=== PATIENT | female | born 1960 | race Caucasian/White ===

== ENCOUNTER → 2017-02-18 | Outpatient (CLI) | payer MEDICARE ==
[~2017-02-18] MED LIST: ADVAIR HFA120 INHALA IH; ASPIR 8181 M1 PO; CLINDAMYCIN HC300 MG PO; GABAPENTIN800 MG PO; LEVOFLOXACIN750 MG PO; MONTELUKAST SOD10 MG PO; MUCINEX600 MG PO; NICOTINE PATCH1 EAC2 TD; PREDNISONE20 MG PO; PROAIR HFA8.5 GM IH; TECFIDERA240 MG PO; VIBRAMYCIN100 MG PO; VITAMIN D31000 UNIT PO; XYZAL5 MG PO
== END | disposition home or self-care (01) ==
LOC: CDC
DX: Z01.810 Encounter for preprocedural cardiovascular examination (principal); R94.31 Abnormal electrocardiogram [ECG] [EKG]
CPT/HCPCS: 93000

== ENCOUNTER 2017-03-03 09:57 | Day surgery (SDC) | payer OTHER ==
[~2017-03-03] VITALS: Ht 154.9 cm; Wt 101.6 kg
[2017-03-03 10:19] VITALS: BP 151/80
[2017-03-03 13:19] VITALS: BP 130/60
[2017-03-03 14:03] VITALS: BP 149/70
== END 2017-03-03 14:00 | disposition home or self-care (01) ==
LOC: SDC
PROC: 0UDB8ZX Extraction of Endometrium, Via Natural or Artificial Opening Endoscopic, Diagnostic (ICD-10-PCS; principal; 2017-03-03)
DX: C54.1 Malignant neoplasm of endometrium (principal); N95.0 Postmenopausal bleeding; J45.909 Unspecified asthma, uncomplicated; E66.9 Obesity, unspecified; Z68.41 Body mass index [BMI] 40.0-44.9, adult; F17.200 Nicotine dependence, unspecified, uncomplicated; Z88.2 Allergy status to sulfonamides; Z79.82 Long term (current) use of aspirin; Z80.0 Family history of malignant neoplasm of digestive organs; Z80.49 Family history of malignant neoplasm of other genital organs; Z80.7 Family history of other malignant neoplasms of lymphoid, hematopoietic and related tissues; Z88.0 Allergy status to penicillin
CPT/HCPCS: 88305; J1100; J1170; J1885; J2250; J2405; J3010

== ENCOUNTER 2017-04-17 21:32 | Inpatient (IN) | payer OTHER ==
[~2017-04-17] VITALS: Ht 154.9 cm; Wt 105.2 kg
[2017-04-18 12:49] VITALS: BP 188/87
[2017-04-18 15:26] VITALS: BP 131/67
[2017-04-18 16:10] LABS: HEMATOCRIT 43.4 % (36.0-46.0); HEMOGLOBIN 13.6 G/DL (11.9-15.5); MCH 28.3 PG (29.0-34.0); MCHC 31.3 G/DL (30.0-36.0); MCV 90.2 FL (83-99); PLATELET COUNT 194 K/uL (156-360); RBC DIS.WIDTH-CV 14.6 % (11.8-14.6); RBC DIS.WIDTH-SD 48.7 % (39-53); RED BLOOD COUNT 4.81 M/uL (3.80-5.20)
[2017-04-18 16:33] LABS: CHLORIDE 103 MEQ/L (99-109); CREATININE 0.9 MG/DL (0.6-1.3); GFR ESTIMATE (CALCULATED) > 59 mL/min/; GLUCOSE 150 mg/dL (70-99); POTASSIUM 4.4 MEQ/L (3.7-5.4); SODIUM 138 MEQ/L (136-147); UREA NITROGEN (BUN) 13 mg/dL (9-23)
[2017-04-18 19:52] VITALS: BP 150/81
[2017-04-18 23:37] VITALS: BP 136/68
[2017-04-19 03:51] VITALS: BP 125/62
[2017-04-19 07:11] VITALS: BP 101/51
[2017-04-19 07:23] LABS: HEMOGLOBIN 12.6 G/DL (11.9-15.5); MCH 27.9 PG (29.0-34.0); MCHC 30.7 G/DL (30.0-36.0); MCV 90.7 FL (83-99); RBC DIS.WIDTH-CV 14.6 % (11.8-14.6); RBC DIS.WIDTH-SD 49.1 % (39-53); RED BLOOD COUNT 4.52 M/uL (3.80-5.20); WHITE BLOOD COUNT 13.8 K/uL (4.1-10.2)
[2017-04-19 07:24] LABS: PLATELET COUNT 205 K/uL (156-360)
[2017-04-19 07:40] LABS: CHLORIDE 99 MEQ/L (99-109); CREATININE 0.9 MG/DL (0.6-1.3); GFR ESTIMATE (CALCULATED) > 59 mL/min/; POTASSIUM 4.7 MEQ/L (3.7-5.4); SODIUM 138 MEQ/L (136-147); UREA NITROGEN (BUN) 14 mg/dL (9-23)
[2017-04-19 07:42] LABS: GLUCOSE 98 mg/dL (70-99)
[2017-04-19 11:46] VITALS: BP 139/68
[2017-04-19 15:33] VITALS: BP 139/62
[2017-04-19 19:05] VITALS: BP 128/60
[2017-04-20 01:48] VITALS: BP 139/80
[2017-04-20 03:30] VITALS: BP 135/70
[2017-04-20 07:01] LABS: HEMATOCRIT 42.4 % (36.0-46.0); HEMOGLOBIN 13.2 G/DL (11.9-15.5); MCH 28.6 PG (29.0-34.0); MCHC 31.1 G/DL (30.0-36.0); PLATELET COUNT 191 K/uL (156-360); RBC DIS.WIDTH-CV 15.1 % (11.8-14.6); RBC DIS.WIDTH-SD 50.5 % (39-53); RED BLOOD COUNT 4.61 M/uL (3.80-5.20)
[2017-04-20 07:26] LABS: CHLORIDE 103 MEQ/L (99-109); GFR ESTIMATE (CALCULATED) > 59 mL/min/; GLUCOSE 106 mg/dL (70-99); POTASSIUM 4.5 MEQ/L (3.7-5.4); SODIUM 141 MEQ/L (136-147); UREA NITROGEN (BUN) 14 mg/dL (9-23)
[2017-04-20 08:36] VITALS: BP 133/62
== END 2017-04-20 10:45 | disposition home or self-care (01) | DRG 742 ==
LOC: 2SOUTH → ENRESERV 21:32 → 2SOUTH 04-18 06:28 → ENRESERV 04-18 11:20 → 2EAST 04-18 12:46 → 2SOUTH 04-18 14:41 → 2EAST 04-20 10:45
PROVIDERS: Obstetrics & Gynecology Gynecologic Oncology
DX: N80.0 Endometriosis of uterus (principal); N83.292 Other ovarian cyst, left side; G35 Multiple sclerosis; E66.01 Morbid (severe) obesity due to excess calories; E11.9 Type 2 diabetes mellitus without complications; N95.0 Postmenopausal bleeding; Z68.41 Body mass index [BMI] 40.0-44.9, adult; F17.200 Nicotine dependence, unspecified, uncomplicated; J45.909 Unspecified asthma, uncomplicated; F43.20 Adjustment disorder, unspecified; F41.9 Anxiety disorder, unspecified; E78.5 Hyperlipidemia, unspecified; M35.3 Polymyalgia rheumatica; H10.44 Vernal conjunctivitis; Z87.01 Personal history of pneumonia (recurrent); Z98.1 Arthrodesis status; Z83.3 Family history of diabetes mellitus; Z82.79 Family history of other congenital malformations, deformations and chromosomal abnormalities; Z82.49 Family history of ischemic heart disease and other diseases of the circulatory system; Z82.3 Family history of stroke; Z82.0 Family history of epilepsy and other diseases of the nervous system; Z80.7 Family history of other malignant neoplasms of lymphoid, hematopoietic and related tissues; Z80.0 Family history of malignant neoplasm of digestive organs
CPT/HCPCS: 36415; 80048; 82948; 85027; 86850; 86900; 86901; 86920; 88307; J0131; J0330; J1100; J1170; J1580; J1650; J1885; J2250; J2405; J2710; J2765; J2795; J3010; J7050; J7120; S0030